=== PATIENT | female | born 1985 | race Two or more races ===

== ENCOUNTER 2017-11-08 10:49 | Outpatient (CLI) | payer OTHER | END 2017-11-08 10:59 | disposition home or self-care (01) | LOC: RX STUDY 10:49 | DX: D25.9 Leiomyoma of uterus, unspecified (principal) ==

== ENCOUNTER 2018-02-08 09:27 | Outpatient (CLI) | payer OTHER | END 2018-02-08 09:34 | disposition home or self-care (01) | LOC: SONOGRAMA 09:27 | DX: D25.9 Leiomyoma of uterus, unspecified (principal); N83.291 Other ovarian cyst, right side ==

== ENCOUNTER → 2019-04-20 | Outpatient (CLI) | payer OTHER ==
[~2019-04-20] MED LIST: ASA81 MG PO; HUMULIN N100 UNIT/1 SUBCUTANEO; PRENATAL TABLE1 EAC1 PO
== END | disposition home or self-care (01) ==
LOC: PRENATAL 10:00
DX: O24.419 Gestational diabetes mellitus in pregnancy, unspecified control (principal); O99.213 Obesity complicating pregnancy, third trimester

== ENCOUNTER 2019-04-24 14:29 | Inpatient (IN) | payer OTHER ==
[~2019-04-24] VITALS: Ht 177.8 cm; Wt 98.4 kg
[~2019-04-24 14:29] MED LIST changes: -ASA81 MG PO; -PRENATAL TABLE1 EAC1 PO
[2019-04-30] MEDS ORDERED: PRENATAL TABLE1 EAC1 PO (08:04)
[2019-04-30] MEDS ORDERED: ASA81 MG PO (08:05)
== END 2019-05-03 13:09 | disposition home or self-care (01) | DRG 788 ==
LOC: OB/GYN 04-27 15:00 → LDR 04-30 07:12 → OB/GYN 04-30 07:12 → LDR 04-30 11:49 → OB/GYN 04-30 14:17
PROVIDERS: ADMIT Specialist
PROC: 3E0P7VZ Introduction of Hormone into Female Reproductive, Via Natural or Artificial Opening (ICD-10-PCS; 2019-04-30)
PROC: 3E033VJ Introduction of Other Hormone into Peripheral Vein, Percutaneous Approach (ICD-10-PCS; 2019-04-30)
PROC: 4A1HXCZ Monitoring of Products of Conception, Cardiac Rate, External Approach (ICD-10-PCS; 2019-04-30)
PROC: 10D00Z1 Extraction of Products of Conception, Low, Open Approach (ICD-10-PCS; principal; 2019-04-30 12:00)
DX: O82 Encounter for cesarean delivery without indication (principal); O76 Abnormality in fetal heart rate and rhythm complicating labor and delivery; Z3A.39 39 weeks gestation of pregnancy; Z37.0 Single live birth